=== PATIENT | female | born 1940 | race Caucasian/White ===

== ENCOUNTER → 2016-10-23 | Outpatient (CLI) | payer MEDICARE, OTHER ==
[~2016-10-23] MED LIST: ASPIRIN 81MG TA81 MG PO; METAMUCIL0.52 G1 PO; PREMARIN 0.60.625 MG PO; VENLAFAXINE H37.5 M2 PO
--- NOTE | 2016-10-23 10:48 | RADIOLOGY REPORT PS360 ---
FEMUR-LT-2 VIEWS ORDERING PHYSICIAN : Luis Contreras MD PATIENT AGE: 75 years GENDER: Female INDICATION: LEFT HIP PAINLeft lateral hip pain. Left femur pain. Was sitting in chair encourage this side felt sharp onset pain. No pop TECHNIQUE: AP lateral view left femur COMPARISON: 2007 left hip FINDINGS Left femur intact with no fracture nor lesion evident. Bones well mineralized. Femoral shaft unremarkable. Soft tissues left thigh unremarkable. The left hip and left knee are included on this study: Mild roughening at along lateral margin greater tuberosity may reflect some early degenerative changes at insertion points, but no acute findings at the left hip. Left femoral head and neck intact. Left hip joint space well maintained. Included 2 views of left knee demonstrate suggest mild early narrowing medial compartment. IMPRESSION: ...... Left femur intact No acute findings Mild narrowing medial compartment suggesting early early degenerative changes here.
--- NOTE | 2016-10-23 10:53 | RADIOLOGY REPORT PS360 ---
HIP LT 2-3V W/PELVIS IF PERFOR ORDERING PHYSICIAN : Luis Contreras MD PATIENT AGE: 75 years GENDER: Female HISTORY: LEFT HIP PAINLeft lateral hip pain. Left femur pain. Was sitting in chair encourage this side felt sharp onset pain. No pop TECHNIQUE: AP frog-leg view left hip along with AP pelvis. FINDINGS Left femur head and neck intact with no fracture nor lesion evident. Bones well mineralized. Left hip joint spaces well-maintained and normal. Contour femoral head and acetabulum appear normal. Soft tissues this region with no significant finding. Bones well mineralized Mild progressive roughening at along lateral margin greater tuberosity may reflect some early degenerative changes at insertion points reflecting mild chronic changes since 2007, but no acute findings at the left hip. Left femoral head and neck intact. Left hip joint space well maintained. AP pelvis, intact. Sacrum unremarkable, SI joints unremarkable & right hip unremarkable. ......IMPRESSION: ...... Left hip intact and well maintained No acute findings
== END ==
LOC: RAD 09:44
DX: M25.552 Pain in left hip (principal)

== ENCOUNTER → 2017-05-03 | Outpatient (CLI) | payer MEDICARE, OTHER ==
--- NOTE | 2017-05-03 13:58 | RADIOLOGY REPORT PS360 ---
US SOFT TISSUE HEAD/NECK HISTORY: LUMP LT SIDE UPPER CERVICAL NECK ORDERING PHYSICIAN: Luis Contreras MD PATIENT AGE: 76 years COMPARISON: None FINDINGS: There is a heterogeneous area of echogenicity in the left submandibular region measuring approximately 3.5 x 1 cm with some low level echoes along the inferior margin. This may be related to the large submandibular gland. There is some decreased echogenicity however inferiorly. Underlying sialadenitis is considered. Neoplasm cannot totally be excluded in the area of decreased echogenicity. Would recommend CT of the neck without and with contrast for more thorough evaluation. No other significant anomalies are evident. No abscess. IMPRESSION: Enlarged heterogeneous submandibular gland which could be due to sialadenitis or even neoplasm. Dedicated CT neck without and with contrast suggested for further evaluation
== END ==
LOC: RAD 10:55
DX: R22.1 Localized swelling, mass and lump, neck (principal)

== ENCOUNTER → 2017-06-19 | Outpatient (CLI) | payer MEDICARE, OTHER ==
--- NOTE | 2017-07-05 11:01 | RADIOLOGY REPORT PS360 ---
US BIOPSY OR PARACENTESIS, US SUBMANDIBULAR (PAROTID ETC) HISTORY: ENLARGEMENT OF SUBMANDIBULAR GLAND ORDERING PHYSICIAN: Jen Yoder MD PATIENT AGE: 76 years COMPARISON: CT scan of 05/17/2017 and ultrasound of 05/03/2017 TECHNIQUE: Following obtaining informed consent, using aseptic technique and local anesthesia with buffered lidocaine, fine-needle aspiration was performed of the nodule of interest using sonographic guidance. 3 passes were made into the nodule with a 25-gauge needle. Specimen was given to cytology. The patient tolerated the procedure well without evidence of immediate complications and left the ultrasound suite in stable condition. CYTOLOGY:Negative for malignancy. Suggestive of sialoadenitis IMPRESSION: Uneventful ultrasound-guided fine-needle aspiration of the left thyroid gland negative for malignancy suggestive of sialoadenitis
== END ==
LOC: RAD 13:57
PROC: 0C9 Mouth and Throat, Drainage (ICD-10-PCS; principal; 2017-06-19)
DX: K11.1 Hypertrophy of salivary gland (principal)